=== PATIENT | female | born 2000 | race American Indian/Alaskan Native ===

== ENCOUNTER 2021-11-26 05:26 | Emergency (ER) | payer MEDICAID | END 2021-11-26 09:41 | disposition left against medical advice (07) | LOC: ED 05:26 | DX: R51.9 Headache, unspecified (principal); M27.8 Other specified diseases of jaws; Z53.21 Procedure and treatment not carried out due to patient leaving prior to being seen by health care provider; W19.XXXA Unspecified fall, initial encounter; Y93.89 Activity, other specified; Y92.89 Other specified places as the place of occurrence of the external cause; Y99.8 Other external cause status ==